=== PATIENT | female | born 1965 | race African-American/Black ===

== ENCOUNTER 2020-03-19 15:41 | Emergency (ER) | payer MEDICAID ==
[~2020-03-19] VITALS: Ht 167.6 cm; Wt 127.0 kg
[2020-03-19] MEDS ORDERED: TETRACAINE 0.5% OPHTH DROPS 4ML LEFTEYE ONE (18:45)
[2020-03-19] MEDS ORDERED: FLUORESCEIN SODIUM 1MG/STRIP LEFTEYE ONE (18:45)
[2020-03-19 19:11] VITALS: BP 145/67
== END 2020-03-19 19:12 | disposition home or self-care (01) ==
LOC: ER 15:41
DX: H10.9 Unspecified conjunctivitis (principal); H53.8 Other visual disturbances
CPT/HCPCS: 99283

== ENCOUNTER 2020-04-19 20:41 | Emergency (ER) | payer MEDICAID ==
[~2020-04-19] VITALS: Ht 170.2 cm; Wt 108.0 kg
[2020-04-19] MEDS ORDERED: TETANUS, DIPHTHERIA, PERTUSSIS VAC/PF 0.5ML (>7YR OLD) IM ONE (23:15)
[2020-04-19] MEDS ORDERED: BACITRACIN ZINC OINT UDPKT TOP ONE (23:15)
[2020-04-19] MEDS ORDERED: IBUPROFEN 600MG TABLET PO ONE (23:15)
[2020-04-19 23:31] VITALS: BP 160/93
== END 2020-04-19 23:49 | disposition home or self-care (01) ==
LOC: ER 20:41
DX: S80.812A Abrasion, left lower leg, initial encounter (principal); Z90.710 Acquired absence of both cervix and uterus; Z98.890 Other specified postprocedural states; Z88.8 Allergy status to other drugs, medicaments and biological substances; W55.03XA Scratched by cat, initial encounter; Y93.89 Activity, other specified; Y92.89 Other specified places as the place of occurrence of the external cause; Y99.8 Other external cause status
CPT/HCPCS: 90471; 90715; 99283

== ENCOUNTER 2021-11-16 15:14 | Emergency (ER) | payer MEDICAID ==
[~2021-11-16] VITALS: Ht 170.2 cm; Wt 111.0 kg
[2021-11-16] MEDS ORDERED: FLUORESCEIN SODIUM 1MG/STRIP LEFTEYE ONE (17:30)
[2021-11-16] MEDS ORDERED: TETRACAINE 0.5% OPHTH DROPS 4ML LEFTEYE ONE (17:30)
[2021-11-16] MEDS ORDERED: OFLO5DRO3 LEFTEYE (17:58)
[2021-11-16 18:55] VITALS: BP 168/98
== END 2021-11-16 18:55 | disposition home or self-care (01) ==
LOC: ER 15:14
DX: H10.89 Other conjunctivitis (principal); J44.9 Chronic obstructive pulmonary disease, unspecified; I10 Essential (primary) hypertension; Z90.710 Acquired absence of both cervix and uterus; Z98.890 Other specified postprocedural states
CPT/HCPCS: 99283

== ENCOUNTER 2024-01-01 08:52 | Emergency (ER) | payer MEDICAID ==
[~2024-01-01] VITALS: Ht 170.2 cm; Wt 90.0 kg
[~2024-01-01 08:52] MED LIST: OCUFLX LEFTEYE
[2024-01-01 09:00] VITALS: BP 125/78; TEMP 98.3; O2SAT 96
[2024-01-01 09:34] VITALS: PULSE 89
[2024-01-01] MEDS ORDERED: IBUP-2029 MT (09:36)
[2024-01-01] MEDS: IBUPROFEN 600MG TABLET PO ONE (10:00)
[2024-01-01 10:10] VITALS: RESP 18
== END 2024-01-01 10:49 | disposition home or self-care (01) ==
LOC: ER 09:15
DX: R20.0 Anesthesia of skin (principal); M25.511 Pain in right shoulder; J44.89 Other specified chronic obstructive pulmonary disease; I10 Essential (primary) hypertension; Z88.1 Allergy status to other antibiotic agents; Z98.890 Other specified postprocedural states
CPT/HCPCS: 99282

== ENCOUNTER 2025-01-22 13:12 | Emergency (ER) | payer MEDICAID ==
[~2025-01-22] VITALS: Ht 170.2 cm; Wt 100.0 kg
[~2025-01-22 13:12] MED LIST changes: +IBUP-2029 MT
[2025-01-22 13:36] VITALS: TEMP 36.9; O2SAT 99
[2025-01-22] MEDS ORDERED: DIPH25TA26 MT (15:29)
[2025-01-22] MEDS ORDERED: BO1 TP (15:29)
[2025-01-22] MEDS ORDERED: SULF1TAB48 MT (15:29)
[2025-01-22] MEDS ORDERED: CEPH500T MT (15:29)
[2025-01-22 15:51] VITALS: BP 159/92; PULSE 109; RESP 12; O2SAT 98
== END 2025-01-22 15:52 | disposition home or self-care (01) ==
LOC: ER 13:12
DX: S81.852A Open bite, left lower leg, initial encounter (principal); L03.116 Cellulitis of left lower limb; J44.89 Other specified chronic obstructive pulmonary disease; I10 Essential (primary) hypertension; Z90.710 Acquired absence of both cervix and uterus; Z98.890 Other specified postprocedural states; Z79.899 Other long term (current) drug therapy; Z88.1 Allergy status to other antibiotic agents; W57.XXXA Bitten or stung by nonvenomous insect and other nonvenomous arthropods, initial encounter; Y93.89 Activity, other specified; Y92.89 Other specified places as the place of occurrence of the external cause; Y99.8 Other external cause status
CPT/HCPCS: 99283